=== PATIENT | female | born 1995 | race Caucasian/White ===

== ENCOUNTER 2023-05-01 12:41 | Emergency (ER) | payer MEDICAID ==
[~2023-05-01] VITALS: Ht 170.2 cm; Wt 95.5 kg
[2023-05-01 13:08] VITALS: TEMP 98.2
[2023-05-01] MEDS ORDERED: NS 1,000 ML IV ONE (15:15)
[2023-05-01 15:19] LABS: COLLECTION METHOD CLEAN CATCH
[2023-05-01 15:25] LABS: BASO % 0.4 % (0.0-2.0); EOS % 0.8 % (0.0-4.0); GRAN # 3.1 K/mm3 (1.4-6.5); HEMATOCRIT 42.6 % (37.0-47.0); HEMOGLOBIN 14.4 g/dl (12.5-16.0); LYMPH # 1.2 K/mm3 (1.2-3.4); MEAN CELL VOLUME 86 fl (80.0-100.0); MEAN CORPUSCULAR HEMOGLOBIN 29 pg (27-31); MEAN CORPUSCULAR HGB CONC 34 g/dl (33.0-37.0); MEAN PLATELET VOLUME 9.4 fl (7.4-10.4); MONO # 0.6 K/mm3 (0.1-0.6); MONO % 12.4 % (1.7-9.3); PLATELET COUNT 343 K/mm3 (130-400); RED BLOOD COUNT 4.93 M/mm3 (4.10-5.30); REDCELL DISTRIBUTION WIDTH-CV 12.7 % (11.5-14.5)
[2023-05-01] MEDS ORDERED: Ondansetron 4 MG/2 ML VIAL IV PRN (15:30)
[2023-05-01] MEDS ORDERED: Morphine 4 MG/ML VIAL IV ONE (15:30)
[2023-05-01 15:36] LABS: ALBUMIN 3.9 gm/dL (3.5-5.0); BILIRUBIN,TOTAL 0.1 mg/dL (0.2-1.2); CREATININE, serum 0.86 mg/dL (0.57-1.11); POTASSIUM 3.9 mmol/L (3.5-4.5)
[2023-05-01 15:59] LABS: PH 5.5 (5.0-8.5); URINE APPEARANCE Clear (CLEAR/HAZY); URINE COLOR Yellow (YELLOW); URINE PROTEIN(semi-quant) Negative (NEGATIVE)
[2023-05-01 16:00] LABS: URINE BACTERIA Rare /hpf (NONE SEEN); URINE BLOOD TRACE-INTACT (NEGATIVE); URINE GLUCOSE Negative (NEGATIVE); URINE KETONE Negative (NEGATIVE); URINE NITRATE Negative (NEGATIVE); URINE UROBILINOGEN 0.2 E.U/dL (0.2-1.0)
[2023-05-01] MEDS ORDERED: NS 100 ML IV SCH (16:30)
[2023-05-01] MEDS ORDERED: Iohexol 300 - 100 ML VIAL IV ONE (16:31)
[2023-05-01] MEDS ORDERED: ZOFRAN ODT4 MG PO (16:58)
[2023-05-01] MEDS ORDERED: NORCO 325 MG-51 TAB PO (16:58)
[2023-05-01 17:21] VITALS: BP 106/64; PULSE 58
== END 2023-05-01 17:21 | disposition home or self-care (01) ==
LOC: COL.ER 12:41
PROVIDERS: Personal Emergency Response Attendant
DX: J10.2 Influenza due to other identified influenza virus with gastrointestinal manifestations (principal); J10.1 Influenza due to other identified influenza virus with other respiratory manifestations
CPT/HCPCS: J2270; J2405; J7030; Q9967